=== PATIENT | female | born 1980 | race African-American/Black ===

== ENCOUNTER 2021-08-01 18:50 | Emergency (ER) | payer OTHER ==
[~2021-08-01] VITALS: Ht 157.5 cm; Wt 105.0 kg
[2021-08-01 19:16] VITALS: BP 121/80
[2021-08-01] MEDS ORDERED: PREDNISONE 20MG TABLET PO ONE (19:45)
[2021-08-01] MEDS ORDERED: ALBU6.7H9 INH (19:46)
[2021-08-01] MEDS ORDERED: P50 MT (19:46)
[2021-08-01] MEDS ORDERED: ALBU05 NEB (19:46)
== END 2021-08-01 22:00 | disposition home or self-care (01) ==
LOC: ER 18:50
DX: U07.1 COVID-19 (principal); J45.909 Unspecified asthma, uncomplicated
CPT/HCPCS: 71045; 99283; J7512